=== PATIENT | male | born 1995 | race Caucasian/White ===

== ENCOUNTER 2017-05-06 14:45 | Emergency (ER) | payer SELFPAY ==
[~2017-05-06] VITALS: Ht 160 cm; Wt 54.9 kg
[2017-05-06] MEDS ORDERED: KETOROLAC 60 MG/2 ML VIAL. IM ONE (15:10)
--- NOTE | 2017-05-06 15:15 | RAD ---
Left middle finger, 3 views, 05/06/2017: History: Finger pain and swelling No fracture or dislocation is identified. No destructive bony lesion is seen. There is mild diffuse soft tissue swelling. IMPRESSION: No acute bony abnormality is detected.
--- NOTE | 2017-05-06 15:35 | PHYS DOC ---
General Chief Complaint: FINGER INJURY Stated Complaint: FINGER PAIN Time Seen by MD: 14:48 Source: patient, family Exam Limitations: no limitations Problems: History of Present Illness Initial Comments Patient is a 21-year-old male accompanied by his mom complaining of left third finger pain and swelling. Patient states the past year at least he's had trouble with his left third finger. He denies any trauma or overuse but has noticed it hurting when he uses his hands more. He has occasional popping he thinks at the PIP joint but denies numbness tingling weakness or radiating symptoms. The finger is swollen and doesn't bother him at rest but he describes moderate sharp pain with use. It seems to bother him the most with flexion of the finger against resistance, and when you ask him to specify he does point to the anterior midline of the entire length of the digit at the location of his pain. No prior medical workup status is not a work-related issue the patient does not have a primary care doctor. Onset: other Severity: moderate Pain/Injury Location: left 3rd finger Method of Injury: unknown Modifying Factors: worse with jarring, worse with movement, improves with rest Allergies: Coded Allergies: No Known Drug Allergies (Unverified , 05/06/17) Past Medical History Medical History: no pertinent history Surgical History: noncontributory Family History Significant Family History: no pertinent family hx Social History Smoker: cigarettes Alcohol: none Drugs: none Review of Systems Constitutional: denies chills, denies fever Respiratory: denies cough, denies shortness of breath Cardiovascular: denies chest pain, denies palpitations Gastrointestinal: denies nausea, denies vomiting Musculoskeletal: see HPI Skin: denies change in color, denies lumps Psychiatric/Neurological: denies numbness, denies paresthesia, denies weakness Physical Exam General Appearance: WD/WN, no apparent distress HEENT: normal ENT inspection (speech impediment noted) Neck: non-tender, supple Cardiovascular/Respiratory: normal peripheral pulses, no respiratory distress Hand: swelling (there is swelling and tenderness located along the length of the left third finger, tenderness is located at the anterior aspect presumably in the tendon complexes. Flexor and tendon complexes are intact the collateral ligaments appear to be intact, no palpable bony deformity noted.) Neurologic/Tendon: normal sensation, normal motor functions, normal tendon functions, responds to pain Psychiatric: alert, oriented x 3 Skin: normal color, warm/dry Orders, Labs, Meds PATIENT: BOY LO ACCOUNT: [id number] : 1995 LOCATION: ER AGE: 21 SEX: M EXAM STATUS: PRE ER ORD. PHYSICIAN: CHAVA RDZ DO REASON: 3rd digit pain no injury PROCEDURE: FINGER(S) LEFT Left middle finger, 3 views, 05/06/2017: History: Finger pain and swelling No fracture or dislocation is identified. No destructive bony lesion is seen. There is mild diffuse soft tissue swelling. IMPRESSION: No acute bony abnormality is detected. DICTATED AND SIGNED BY: YANIRA MOSS MD DATE: 05/06/171511 CC: PCP,BRIAN; CHAVA RDZ DO ~ I discussed the need to establish with a primary care doctor. I discussed the possibility that MRI or orthopedics referral could be necessary if conservative care was not affected. The patient says he doesn't have a doctor or findings so we discussed the [facility] and [facility]. He is neurovascularly intact after the splint is placed he has mom expressed agreement and understanding with the treatment plan. He is advised to stop smoking. Departure Time of Disposition: 15:47 Disposition: 01 HOME, SELF-CARE Diagnosis: left third finger pain NOS Condition: GOOD Patient Instructions: Finger Sprain, [id number]-[id number], RICE - Routine Care for Injuries, [id number] Additional Instructions: RICE, see handout. Wear metal finger splint on the affected finger as needed. No use of the affected digit until cleared by your doctor. [id number] Tylenol and ibuprofen as needed for discomfort. Per your request ED staff will provide you information regarding the [facility] and [facility]. Use these resources to try to establish with a primary care doctor and for referrals or therapy as needed. Follow-up with a doctor in 7-10 days for recheck and further activity restriction modifications. Return to ED with new or changing symptoms. CHAVA RDZ DO May 06, 2017 15:35
[2017-05-06 15:56] VITALS: BP 123/53
== END 2017-05-06 16:00 | disposition home or self-care (01) ==
LOC: ER 14:45
DX: M79.645 Pain in left finger(s) (principal); R22.32 Localized swelling, mass and lump, left upper limb; F17.210 Nicotine dependence, cigarettes, uncomplicated
CPT/HCPCS: 29130; 73140; 96372; 99284; J1885

== ENCOUNTER 2020-06-06 21:10 | Emergency (ER) | payer SELFPAY ==
[~2020-06-06] VITALS: Ht 157.5 cm; Wt 61.5 kg
--- NOTE | 2020-06-06 21:31 | PHYS DOC ---
Past History Past Medical History: No Pertinent History Past Surgical History: No Surgical History Smoking: Less than 1pk/day Alcohol Use: None Drug Use: None General Adult EDM: Chief Complaint: SUICIDAL IDEATION HPI: HPI: 24-year-old "homeless" male (lives with grandparents) past medical history of ADHD and "psych history," (has been told he has bipolar disorder and schizophrenia by 2 different therapists, on no routine psych medications), presents to the ED BIBEMS after his grandparents called 911, concern for suicidal thoughts. Patient reports he was texting his girlfriend that he has been suicidal, intermittently for the past year, thinking of overdosing on pills or stabbing himself with knife -reports he had his mother's pills (unknown names) and a knife in front of him. Pt denies overdosing on any medications today. No associated alcohol, illicit drug use or IVDU. Smokes cigarettes. H/o cutting his left inner distal thigh in high school, "that's why there's no hair there." Has never been admitted to a psych hospital. Is voluntary and states "I really need help." Denies HI or hallucinations. Review of Systems: Review of Systems: Constitutional: Denies fever or chills Eyes: Denies change in visual acuity HENT: Denies nasal congestion or sore throat Respiratory: Denies cough or shortness of breath Cardiovascular: Denies chest pain or edema GI: Denies abdominal pain, nausea, vomiting, bloody stools or diarrhea : Denies dysuria or hematuria Musculoskeletal: Denies back pain or joint pain Integument: Denies rash Neurologic: Denies headache, focal weakness or sensory changes Endocrine: Denies polyuria or polydipsia Lymphatic: Denies swollen glands Psychiatric: Denies HI or hallucinations or anxiety Allergies: Allergies: Allergies Coded Allergies Type Severity Reaction Last Updated Verified No Known Drug Allergies 05/06/17 No Physical Exam: PE: Constitutional: Well developed, well nourished, no acute distress, non-toxic appearance. [] HENT: Normocephalic, atraumatic, bilateral external ears normal, oropharynx moist, no oral exudates, nose normal. [] Eyes: EOMI, conjunctiva normal, no discharge. [] Neck: Normal range of motion, no supple, no stridor. [] Cardiovascular:Heart rate regular rhythm, no murmur [] Lungs & Thorax: Bilateral breath sounds clear to auscultation [] Abdomen: Bowel sounds normal, soft, no tenderness, no masses, no pulsatile masses. [] Skin: Warm, dry, no erythema, no rash. [] Back: No tenderness, no CVA tenderness. [] Extremities: No tenderness, no cyanosis, no clubbing, ROM intact, no edema. [] decreased hair over thigh where pt reports cutting-no old linear scars Neurologic: Alert and oriented X 3, normal motor function, normal sensory function, no focal deficits noted. [] Psychologic: Affect normal, judgement normal, mood normal. [] EKG: EKG: [] Radiology/Procedures: Radiology/Procedures: [] Heart Score: Risk Factors: Risk Factors: DM, Current or recent (<one month) smoker, HTN, HLP, family history of CAD, obesity. Risk Scores: Score 0 - 3: 2.5% MACE over next 6 weeks - Discharge Home Score 4 - 6: 20.3% MACE over next 6 weeks - Admit for Clinical Observation Score 7 - 10: 72.7% MACE over next 6 weeks - Early Invasive Strategies Course & Med Decision Making: Course & Med Decision Making Pertinent Labs and Imaging studies reviewed. (See chart for details) Concern for depression with chronic suicidal thoughts - has no access to fi rearms or weapons. I observed patient's lenghty evaluation with SALES PRODUCER (> 1 hour). Pt reports he thinks of harming himself but has never attempted suicide and does not want to commit suicide, is looking for supportive resources. Suicide plan established with SALES PRODUCER. Strict ed return precautions for SI/depression/HI/hallucinations or psychosis. Encouraged urgent outpatient follow-up with PMD and psychiatry. Life-threatening processes were considered but are low suspicion at this time, given history and physical exam. Pt was educated on all prescription medications and adverse effects. All patient's questions were answered and pt was stable at time of discharge. Life/limb-threatening differential includes but is not limited to, end organ damage/sepsis, head and neck injury, neurologic deficit, alcohol/drug ingestion, toxidrome, suicidal/homicidal ideations plans or attempts, psychosis or mental illness resulting in self neglect and inability to caare for self. I spoken with the patient and her caregivers. I explained the patient's condition, diagnoses and treatment plan based on the information available to me at this time. I have answered the patient and her caregiver's questions and addressed any concerns. The patient and her caregivers have a good underst anding of patient's diagnosis, condition and treatment plan as can be expected at this point. Vital signs have been stable. Patient's condition is stable and appropriate for discharge from the emergency department. Patient will pursue further outpatient evaluation with primary care physician or other designated or consulting physician as outlined in the discharge instructions. The patient and/or caregivers are agreeable to this plan of care and follow-up instructions have been explained in detail. The patient and/or caregivers have received these instructions in written form and have expressed an understanding of the discharge instructions. The patient and/or caregivers are aware that any significant change of condition or worsening of symptoms should prompt immediate return to this or the closest emergency department or call to 911. Jimmie Disclaimer: Jimmie Disclaimer: This electronic medical record was generated, in whole or in part, using a voice recognition dictation system. Departure Departure: Impression: Primary Impression: Suicidal ideations Additional Impression: Marijuana use Disposition: 01 DC HOME SELF CARE/HOMELESS Condition: STABLE Referrals: PCP,NO (PCP) FOLLOW UP WITH FAMILY MEDICINE: [facility], [facility] [address] [facility] [address] [place] [address], [facility] Instructions: Depression, Adult, Suicidal Feelings, How to Help Yourself Additional Instructions: FOLLOW UP WITH PSYCHIATRY: [facility] [address] [place] [address] [facility] [address] [place] [address] [facility] [address], [address] [place] [address] EMERGENCY DEPARTMENT GENERAL DISCHARGE INSTRUCTIONS Thank you for coming to [facility] (ED) today and trusting us with you care. We trust that you had a positivie experience in our Emergency Department. If you wish to speak to the department management, you may call the director at [phone]. YOUR FOLLOW UP INSTRUCTIONS ARE FOLLOWS: 1. Do you have a private Doctor? If you do not have a private doctor, please ask for a resource list of physicians or clinics that may be able to assist you with follow up care. 2. The Emergency Physician has interpreted your x-rays. The X-Ray specialist will also review them. If there is a change in the findings, you will be notified in 48 hours when at all possible. 3. A lab test or culture has been done, your results will be reviewed and you will be notified if you need a change in treatment. ADDITIONAL INSTRUCTIONS AND INFORMATION: 1. Your care today has been supervised by a physician who is specially trained in emergency care. Many problems require more than one evaluation for a complete diagnosis and treatment. We recommend that you schedule your follow up appointment as recommended to ensure complete treatment of you illness or injury. If you are unable to obtain follow up care and continue to have a problem, or if your condition worsens, we recommend that you return to the ED. 2. We are not able to safely determine your condition over the phone nor are we able to give sound medical advice over the phone. For these safety reasons, if you call for medical advice we will ask you to come to the ED for further evaluation. 3. If you have any questions regarding these discharge instructions please call the ED at [phone]. SAFETY INFORMATION: In the interest of safety, wellness, and injury prevention; we encourage you to wear your sealbelt, if you smoke; quite smoking, and we encourage family to use a prote ctive helmet for bicycling and other sporting events that present an increased risk for head injury. IF YOUR SYMPTOMS WORSEN OR NEW SYMPTOMS DEVELOP, OR YOU HAVE CONCERNS ABOUT YOUR CONDITION; OR IF YOUR CONDITION WORSENS WHILE YOU ARE WAITING FOR YOUR FOLLOW UP APPOINTMENT; EITHER CONTACT YOUR PRIMARY CARE DOCTOR, THE PHYSICIAN WHOSE NAME AND NUMBER YOU WERE GIVEN, OR RETURN TO THE ED IMMEDIATELY. [facility]ENTER[facility]ERRI DO Jun 06, 2020 21:31
[2020-06-06 22:44] LABS: BASO % 0 % (0-3); EOS # 0.1 x10^3/uL (0.0-0.7); EOS % 2 % (0-3); HEMATOCRIT 49.3 % (39.0-53.0); HEMOGLOBIN 16.8 g/dL (13.0-17.5); LYMPH # 2.5 x10^3/uL (1.0-4.8); LYMPH % 32 % (24-48); MEAN CORPUSCULAR HEMOGLOBIN 31 pg (25-35); MEAN CORPUSCULAR HGB CONC 34 g/dL (31-37); MEAN CORPUSCULAR VOLUME 92 fL (79-100); MONO # 0.4 x10^3/uL (0.0-1.1); MONO % 6 % (0-9); NEUT # 4.7 x10^3uL (1.8-7.7); NEUT % 60 % (31-73); PLATELET COUNT 287 x10^3/uL (140-400); RED BLOOD COUNT 5.38 x10^6/uL (4.30-5.70); RED CELL DISTRIBUTION WIDTH 13.3 % (11.5-14.5); WHITE BLOOD COUNT 7.7 x10^3/uL (4.0-11.0)
[2020-06-06 22:48] LABS: CALCIUM 9.3 mg/dL (8.5-10.1); CREATININE 0.8 mg/dL (0.7-1.3); GFR 119.8; POTASSIUM 3.6 mmol/L (3.5-5.1)
[2020-06-06 22:52] LABS: BARBITURATES NEG (NEG); BENZODIAZEPINES NEG (NEG); CANNABINOIDS POS (NEG); COCAINE NEG (NEG); METHADONE NEG (NEG); OPIATES NEG (NEG); PHENCYCLIDINE NEG (NEG)
[2020-06-06 22:56] LABS: AMPHETAMINE/METHAMPHETAMINE NEG (NEG)
[2020-06-07 02:20] VITALS: BP 110/70
== END 2020-06-07 02:22 | disposition home or self-care (01) ==
LOC: ER 21:10
DX: R45.851 Suicidal ideations (principal); F90.9 Attention-deficit hyperactivity disorder, unspecified type; F31.9 Bipolar disorder, unspecified; F20.9 Schizophrenia, unspecified; F12.90 Cannabis use, unspecified, uncomplicated; Z87.891 Personal history of nicotine dependence
CPT/HCPCS: 36415; 80048; 80307; 85025; 99285; G0480; 99283

== ENCOUNTER 2020-11-28 20:50 | Emergency (ER) | payer SELFPAY ==
[~2020-11-28] VITALS: Ht 157.5 cm; Wt 61.5 kg
[2020-11-28 20:53] VITALS: BP 133/89
--- NOTE | 2020-11-28 21:02 | EKG ---
[address] [address] Test Date: 2020-11-28 Test Time: 20:52:42 Pat Name: BOY LO Department: Room: Gender: M Health Data Analyst: : 1995 Requested By: ROVERTO GOODRICH Order Number: [id number] Reading MD: Measurements Intervals [place] Rate: 112 P: 90 CO: 130 QRS: 105 QRSD: 84 T: 59 QT: 302 QTc: 414 Interpretive Statements SINUS TACHYCARDIA LEFT ATRIAL ABNORMALITY RIGHTWARD AXIS ABNORMAL ECG RI6.02 No previous ECG available for comparison
--- NOTE | 2020-11-28 21:10 | PHYS DOC ---
Past History Past Medical History: Bipolar, Depression, Schizophrenia, Other Additional Past Medical Histor: ADHD Past Surgical History: No Surgical History Smoking: Less than 1pk/day Alcohol Use: Occasionally Drug Use: None Adult General Chief Complaint Chief Complaint: CHEST PAIN HPI HPI Patient is a 25-year-old male with a past medical history significant for kidney stones, who presents with left flank pain. States it has been intermittent over the last week but over the last day or so has been relatively constant, 6 out of 10, sharp in nature with some radiation to his groin. States it is feels familiar to when he had a renal stone. Denies fever, chest pain, shortness of breath, other abdominal pain, nausea, vomiting, dysuria, hematuria. Review of Systems Review of Systems Review of systems otherwise unremarkable except noted in HPI Allergies Allergies Allergies Coded Allergies Type Severity Reaction Last Updated Verified No Known Drug Allergies 05/06/17 No Physical Exam Physical Exam Constitutional: Well developed, well nourished, no acute distress, non-toxic appearance. [] HENT: Normocephalic, atraumatic, bilateral external ears normal, oropharynx moist, no oral exudates, nose normal. [] Cardiovascular:Heart rate regular rhythm, no murmur [] Lungs & Thorax: Bilateral breath sounds clear to auscultation [] Abdomen: soft, no tenderness, no masses, no pulsatile masses. [] Skin: Warm, dry, no erythema, no rash. [] Back: no CVA tenderness. [] Neurologic: Alert and oriented X 3, normal motor function, normal sensory function, no focal deficits noted. [] Psychologic: Affect normal, judgement normal, mood normal. [] Current Patient Data Vital Signs Vital Signs Date Time Temp Pulse Resp B/P (MAP) Pulse Ox O2 Delivery O2 Flow Rate FiO2 11/28/20 20:53 98.2 110 16 133/89 (104) 100 Room Air EKG EKG EKG with a rate of 112, QRS of 84, QTc of 414, no STEMI. [] Radiology/Procedures Radiology/Procedures []INDINGS: Heart size is normal. No pericardial effusion. Visualized lung bases are clear. No pleural effusion. Evaluation of the solid organs is limited secondary to noncontrast technique. Liver, spleen, pancreas, gallbladder and adrenals are unremarkable. No perinephric inflammation or hydronephrosis. No renal or ureteral calculi are identified. Bladder is decompressed not well evaluated. Prostate is not enlarged. Large and small bowel are unremarkable. Appendix is normal. No free intra- abdominal air or fluid. No obstruction. Abdominal aorta has a normal course and caliber. Abdominal vasculature is patent. No enlarged intra-abdominal lymph nodes are identified. No suspicious osseous lesions or acute fractures. IMPRESSION: No renal or ureteral calculi. No evidence for obstructive uropathy. Chest x-ray not concerning Heart Score C/O Chest Pain: No Risk Factors: Risk Factors: DM, Current or recent (<one month) smoker, HTN, HLP, family history of CAD, obesity. Risk Scores: Risk Factors: DM, Current or recent (<one month) smoker, HTN, HLP, family history of CAD, obesity. Course & Med Decision Making Course & Med Decision Making Patient is a 25-year-old male who presents with left flank pain Vital signs notable for sinus tachycardia. Physical exam noted above. EKG noted above with sinus tachycardia. Given fentanyl for pain. Imaging with no acute findings. Patient pain resolved with medication. Patient stated he felt he was safe to go home and was ready to go home. Discussed differential with patient advised to follow-up with primary care physician first thing Tuesday to update on ED visit. Gave strict return precautions to the ED. Patient grateful, verbalized understanding and agreed with plan of discharge. [] Dragon Disclaimer Dragon Disclaimer This electronic medical record was generated, in whole or in part, using a voice recognition dictation system. Departure Departure: Impression: Primary Impression: Left flank pain Disposition: HOME / SELF CARE / HOMELESS Condition: GOOD Referrals: MARY ROY MD Patient Instructions: Chest Pain (Nonspecific), [id number]-[id number], Flank Pain, [id number] Additional Instructions: Please read all of the attached information carefully. As discussed you can use Tylenol, ibuprofen as needed at home. Please call your primary care physician first thing Tuesday morning to discuss your ED visit and set up a follow-up as discussed or call the number provided to establish care with a primary care physician in the area. Please come back to the emergency department immediately with new or concerning symptoms as discussed. ROVERTO GOODRICH MD Nov 28, 2020 21:10
--- NOTE | 2020-11-28 22:23 | RAD ---
Exam: CT of abdomen and pelvis without contrast INDICATION: Left flank pain TECHNIQUE: Sequential axial images through the abdomen and pelvis obtained without IV contrast. Sagit david and coronal reformatted images were reconstructed from the axial data and reviewed. Comparisons: None FINDINGS: Heart size is normal. No pericardial effusion. Visualized lung bases are clear. No pleural effusion. Evaluation of the solid organs is limited secondary to noncontrast technique. Liver, spleen, pancreas, gallbladder and adrenals are unremarkable. No perinephric inflammation or hydronephrosis. No renal or ureteral calculi are identified. Bladder is decompressed not well evaluated. Prostate is not enlarged. Large and small bowel are unremarkable. Appendix is normal. No free intra-abdominal air or fluid. No obstruction. Abdominal aorta has a normal course and caliber. Abdominal vasculature is patent. No enlarged intra-abdominal lymph nodes are identified. No suspicious osseous lesions or acute fractures. IMPRESSION: No renal or ureteral calculi. No evidence for obstructive uropathy. Exposure: One or more of the following in the visualized dose reduction techniques were utilized for this examination: 1. Automated exposure control 2. Adjustment of the MA and/or KV according to patient size 3. Use of iterative of reconstructive technique Electronically signed by: Sofiya Mendosa MD (11/28/2020 10:21 PM) [facility]ITALCHERELLE
--- NOTE | 2020-11-28 23:08 | RAD ---
XR CHEST 1V Clinical History: Reason: chest pain / Spl. Instructions: / History: Technique: AP view of the chest was obtained at 11/28/2020 9:46 PM. Comparison: None. Findings: The cardiomediastinal silhouette is normal. The pulmonary vasculature is normal. A few linear opaciti es in the lung bases are likely discoid atelectasis. Impression: No evidence of an acute cardiopulmonary process. Electronically signed by: Phoenix Delvalle III, MD (11/28/2020 11:05 PM) [facility]ENTERIRASEMA
== END 2020-11-28 22:45 | disposition home or self-care (01) ==
LOC: ER 20:50
DX: R10.9 Unspecified abdominal pain (principal); F31.9 Bipolar disorder, unspecified; F20.9 Schizophrenia, unspecified; F90.9 Attention-deficit hyperactivity disorder, unspecified type; F17.200 Nicotine dependence, unspecified, uncomplicated; Z87.442 Personal history of urinary calculi
CPT/HCPCS: 71045; 74176; 93005; 99284-25; 99285-25

== ENCOUNTER 2021-12-16 11:33 | Emergency (ER) | payer SELFPAY ==
[~2021-12-16] VITALS: Ht 157.5 cm; Wt 61.5 kg
[2021-12-16 12:00] VITALS: BP 128/87
--- NOTE | 2021-12-16 12:16 | EKG ---
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
--- NOTE | 2021-12-16 12:20 | PHYS DOC ---
Past History Past Medical History: Bipolar, Depression, Schizophrenia, Other Additional Past Medical Histor: ADHD Past Surgical History: No Surgical History Smoking: Less than 1pk/day Alcohol Use: Occasionally Drug Use: None General Adult EDM: Chief Complaint: CHEST PAIN HPI: HPI: Patient is a 26-year-old male coming in for 2 days of cough with yellow phlegm. Patient states that he coughed earlier and had some blood come up. Denies any fevers, chills, GI complaints. Patient is a daily tobacco user. Has not been vaccinated against COVID or influenza. No known sick contacts. Denies any recent travel. Review of Systems: Review of Systems: All other systems within normal limits except for as noted in the HPI Allergies: Allergies: Allergies Coded Allergies Type Severity Reaction Last Updated Verified No Known Drug Allergies 05/06/17 No Physical Exam: PE: Constitutional: Well developed, well nourished, no acute distress, non-toxic appearance. [] HENT: Normocephalic, atraumatic, bilateral external ears normal, nose normal. [] Eyes: PERRLA, conjunctiva normal, no discharge. [] Neck: No rigidity, supple, no stridor. [] Cardiovascular: Regular rate and rhythm, brisk cap refill [] Lungs & Thorax: Non labored symmetric respirations, no tachypnea or respiratory distress. Lungs clear to auscultation [] Abdomen: Soft, nondistended. Skin: Warm, dry, no erythema, no rash. [] Back: Unremarkable Extremities: No deformities, range of motion grossly intact, no lower extremity edema [] Neurologic: Alert and oriented X 3, no focal deficits noted. [] Psychologic: Affect normal, judgement normal, mood normal. [] Current Patient Data: Vital Signs: Vital Signs Date Time Temp Pulse Resp B/P (MAP) Pulse Ox O2 Delivery O2 Flow Rate FiO2 12/16/21 12:00 98.1 80 22 128/87 (101) 100 Room Air EKG: EKG: Sinus rhythm, heart rate 87, right axis deviation, no STEMI. [] Radiology/Procedures: Radiology/Procedures: [address] [address] IMAGING REPORT Signed PATIENT: BOY LO ACCOUNT: [id number] : 1995 LOCATION: ER AGE: 26 SEX: M EXAM STATUS: REG ER ORD. PHYSICIAN: CHRISTINA MARIE MD REASON: cough, chest pain PROCEDURE: CHEST PA & LATERAL EXAM: XR CHEST 2V 12/16/2021 12:33 PM CLINICAL INDICATION: Cough, chest pain COMPARISON: Chest radiograph 11/28/2020 TECHNIQUE: PA and lateral views of the chest FINDINGS: The heart and mediastinum are normal. Lungs are well-expanded and clear. No consolidation, pleural effusion, or pneumothorax. Pulmonary vascularity is normal. The thoracic skeleton is intact. IMPRESSION: Normal chest radiograph. Electronically signed by: Christina Falk MD (12/16/2021 1:51 PM) [id number] DICTATED AND SIGNED BY: CHRISTINA FALK MD DATE: 12/16/21 1350 CC: CHRISTINA MARIE MD; PCP,NO ~ [] Heart Score: C/O Chest Pain: N/A Risk Factors: Risk Factors: DM, Current or recent (<one month) smoker, HTN, HLP, family his tory of CAD, obesity. Risk Scores: Score 0 - 3: 2.5% MACE over next 6 weeks - Discharge Home Score 4 - 6: 20.3% MACE over next 6 weeks - Admit for Clinical Observation Score 7 - 10: 72.7% MACE over next 6 weeks - Early Invasive Strategies Course & Med Decision Making: Course & Med Decision Making Pertinent Labs and Imaging studies reviewed. (See chart for details) [] Dragon Disclaimer: Dragon Disclaimer: This electronic medical record was generated, in whole or in part, using a voice recognition dictation system. Departure Departure: Impression: Primary Impression: Person under investigation for COVID-19 Disposition: 01 HOME / SELF CARE / HOMELESS Condition: STABLE Referrals: PCP,NO (PCP) Patient Instructions: Cough, Adult, [id number] Additional Instructions: Use [id number] cough medications and decongestants for symptoms. We will call you if your COVID or influenza test is positive. CHRISTINA MARIE MD December 16, 2021 12:20
[2021-12-16 12:43] LABS: BASO % 1 % (0-3); EOS # 0.1 x10^3/uL (0.0-0.7); EOS % 2 % (0-3); HEMATOCRIT 42.9 % (39.0-53.0); HEMOGLOBIN 14.9 g/dL (13.0-17.5); LYMPH % 43 % (24-48); MEAN CORPUSCULAR HEMOGLOBIN 32 pg (25-35); MEAN CORPUSCULAR HGB CONC 35 g/dL (31-37); MEAN CORPUSCULAR VOLUME 91 fL (79-100); MONO # 0.5 x10^3/uL (0.0-1.1); MONO % 10 % (0-9); NEUT # 2.1 x10^3uL (1.8-7.7); NEUT % 45 % (31-73); PLATELET COUNT 257 x10^3/uL (140-400); RED BLOOD COUNT 4.73 x10^6/uL (4.30-5.70); RED CELL DISTRIBUTION WIDTH 13.4 % (11.5-14.5); WHITE BLOOD COUNT 4.7 x10^3/uL (4.0-11.0)
[2021-12-16 13:25] LABS: CALCIUM 8.9 mg/dL (8.5-10.1); CREATININE 0.8 mg/dL (0.7-1.3); GFR 117.8; POTASSIUM 3.6 mmol/L (3.5-5.1)
[2021-12-16 13:28] LABS: ALBUMIN 4.1 g/dL (3.4-5.0); ALBUMIN/GLOBULIN RATIO 1.4 (1.0-1.7); TOTAL BILIRUBIN 0.5 mg/dL (0.2-1.0)
--- NOTE | 2021-12-16 13:53 | RAD ---
EXAM: XR CHEST 2V 12/16/2021 12:33 PM CLINICAL INDICATION: Cough, chest pain COMPARISON: Chest radiograph 11/28/2020 TECHNIQUE: PA and lateral views of the chest FINDINGS: The heart and mediastinum are normal. Lungs are well-expanded and clear. No consolidatio n, pleural effusion, or pneumothorax. Pulmonary vascularity is normal. The thoracic skeleton is int act. IMPRESSION: Normal chest radiograph. Electronically signed by: Christina Falk MD (12/16/2021 1:51 PM) [id number]
[2021-12-16 17:41] LABS: INFLUENZA A PATIENT NEGATIVE (NEGATIVE)
[2021-12-16 17:42] LABS: INFLUENZA B PATIENT NEGATIVE (NEGATIVE)
== END 2021-12-16 14:56 | disposition home or self-care (01) ==
LOC: ER 11:33
DX: R05.9 Cough, unspecified (principal); R09.3 Abnormal sputum; F31.9 Bipolar disorder, unspecified; F20.9 Schizophrenia, unspecified; F17.200 Nicotine dependence, unspecified, uncomplicated; Z20.822 Contact with and (suspected) exposure to COVID-19
CPT/HCPCS: 36415; 71046; 80053; 85025; 85379; 87428; 93005; 99285; C9803; U0003